=== PATIENT | female | born 1980 | race Caucasian/White ===

== ENCOUNTER 2016-10-26 12:13 | Day surgery (SDC) | payer OTHER ==
--- NOTE | ~2016-10-26 | OP ---
Record Of Operation [facility] [address] [place]. [address] NAME: KRISTIAN YOUNG : 76 STATUS : [facility]#: [id number] AGE: 36 ADM/REG DATE : 10/26/16 MR#: [id number] REPORT SERV DATE: 10/26/16 DICTATED BY: MIKE TOUSSAINT DATE: 10/26/16 REPORT STATUS : Draft TRANSCRIBED BY: MODAlexi DATE: 10/26/16 DATE OF PROCEDURE: PREOPERATIVE DIAGNOSIS: Band slippage with obstruction. POSTOPERATIVE DIAGNOSIS: Band slippage with obstruction. OPERATION: Band explantation laparoscopically. SURGEON: Mike Toussaint M.D. ANESTHESIA: General endotracheal. COMPLICATION: None. INDICATION OF THE PROCEDURE: This is a 36-year-old white female who had a status post a laparoscopic gastric band placement. 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 Her BMI right now is 26 and she has lost close to 60% of her excess weight so that puts her in a good weight loss category to not required to do anything right now. She will proceed with the surgery. DESCRIPTION OF THE OPERATION: The patient was taken to the operating room and after adequate general anesthesia was prepped and draped in a sterile manner, first we made an incision on top of the access port carefully well all the way down to the subcutaneous tissue with the cautery and excised the encapsulation tissue around the access port. This is a low-profile port, so we were able to excise the encapsulation tissue, separate the port from the abdominal wall muscle and then pulled that out and transected the tubing, pulled back into the abdomen, removed the port and then cauterized and removed some of the encapsulation tissue that was around the port. We created good hemostasis and then we put a total of three trocars in the upper abdomen. Carefully, we visualized the anatomy and was a significant slippage with a kink and an incarceration of the upper portion of the stomach twisted to the point that if would remain unawake, it would cause some strangulation of the left lobe, causing significant abdominal pain. We were able to take the adhesions around the buckle with Harmonic Scalpel and then opened the band and as soon as we opened the band all the stomach reposition in the right direction and started looking much better. We were able to pull the band out of the tunnel and remove the band out of the abdominal wall 11- trocar incision. Then, we proceeded to visualize the stomach to put an OG tube to decompress the stomach and everything started looking more normal. The stomach reshaped back to normal and there was no evidence of ischemia or injury. Remove the trocars under direct visualization and then the patient tolerated the procedure well. We did close the subcutaneous tissue on the place where she had the access port with an interrupted Vicryl 2- 0 suture and then closed the skin with subcuticular Monocryl 4-0. The patient tolerated the Record Of Operation [facility] [id number] [place]. [address] NAME: KRISTIAN YOUNG : 76 STATUS : [facility] PAT#: [id number] AGE: 36 ADM/REG DATE : 10/26/16 MR#: [id number] REPORT SERV DATE: 10/26/16 DICTATED BY: MIKE TOUSSAINT DATE: 10/26/16 REPORT STATUS : Draft TRANSCRIBED BY: MALOU DATE: 10/26/16 procedure well and did not have any problems. OSVALDO/MALOU Mike Wise M.D. / [id number] CC: Charlene Jauregui M.D.
[~2016-10-26 12:13] MED LIST: ADVIL PO; LORTAB 5 PO
[2016-10-26 14:04] LABS: BASOPHILS 0.2 %; BASOPHILS ABSOLUTE 0.02 10/3/uL (0.0-0.16); EOSINOPHILS 0.1 %; EOSINOPHILS ABSOLUTE 0.01 10/3/uL (0.0-0.53); HEMATOCRIT 43.2 % (36.0-48.0); HEMOGLOBIN 14.4 g/dL (12.0-16.0); IMMATURE GRANULOCYTES 0.2 %; IMMATURE GRANULOCYTES ABSOLUTE 0.02 10/3/uL (0.0-0.11); LYMPHOCYTES 14.4 %; LYMPHOCYTES ABSOLUTE 1.54 10/3/uL (0.67-4.30); MEAN CORPUS HGB CONC 33.3 g/dL (32.0-36.0); MEAN CORPUSCULAR HEMOGLOB 29.6 pg (26.0-34.0); MEAN CORPUSCULAR VOLUME 88.7 fL (80-100); MEAN PLATELET VOLUME 11.2 fL (9.2-13.0); MONOCYTES 4.8 %; MONOCYTES ABSOLUTE 0.51 10/3/uL (0.21-1.20); NEUTROPHILS 80.3 %; PLATELET COUNT 324 10/3/uL (150-400); RBC DISTRIBUTION WIDTH 13.7 % (12.0-16.0); RED CELL COUNT 4.87 10/6/uL (4.0-5.6); WHITE BLOOD CELLS 10.7 10/3/uL (4.5-10.5)
[2016-10-26 14:05] LABS: MANUAL DIFF NO %
[2016-10-26 14:19] LABS: A/G RATIO 0.9 (0.7-1.9); ALKALINE PHOSPHATASE 93 U/L (45-117); BUN (BLOOD UREA NITROGEN) 9 MG/DL (6-23); CALCIUM, SERUM 9.2 MG/DL (8.5-10.4); CHLORIDE, SERUM 105 MMOL/L (96-112); CO2 (CARBON DIOXIDE) 25 MMOL/L (24-34); CREATININE 0.71 MG/DL (0.55-1.02); GFR AFRICAN AMERICAN 125 ML/MIN (>=60); GFR NON AFRICAN AMERICAN 108 ML/MIN (>=60); GLOBULIN 4.6 G/DL (2.5-4.1); GLUCOSE, SERUM 100 MG/DL (60-99); POTASSIUM, SERUM 3.7 MMOL/L (3.5-5.3); SGOT(AST) 13 U/L (5-40); SGPT(ALT) 18 U/L (5-65); SODIUM, SERUM 140 MMOL/L (135-148); TOTAL BILIRUBIN 0.4 MG/DL (0-1.2); TOTAL PROTEIN 8.6 G/DL (6.0-8.5)
== END 2016-10-26 19:15 | disposition home or self-care (01) ==
LOC: SDC 12:13
PROVIDERS: Surgery
PROC: 0DP64CZ Removal of Extraluminal Device from Stomach, Percutaneous Endoscopic Approach (ICD-10-PCS; principal; 2016-10-26 14:45)
DX: K95.09 Other complications of gastric band procedure (principal); K56.5 Intestinal adhesions [bands] with obstruction (postinfection); Z79.891 Long term (current) use of opiate analgesic; Z79.1 Long term (current) use of non-steroidal anti-inflammatories (NSAID)
CPT/HCPCS: 80053; 84703; 85025; A9270-GY; J0330; J0690; J2250; J2405; J2710; J3010